=== PATIENT | female | born 1970 | race Caucasian/White ===

== ENCOUNTER 2020-06-02 08:02 | Outpatient (CLI) | payer MEDICARE, MEDICAID ==
[~2020-06-02 08:02] MED LIST: ACETAMINOPHEN 325 MG TABLET PO PRN; DIPHENHYDRAMINE HCL 25 MG in NORMAL SALINE 50 ML IV PRN; IRON DEXTRAN COMPLEX 25 MG in SYRINGE, DISPOSABLE, 1 EACH IV PRN; IRON DEXTRAN COMPLEX 775 MG in NORMAL SALINE 500 ML IV PRN; NORMAL SALINE 250 ML IV PRN
[2020-06-02 08:35] VITALS: BP 112/51
== END 2020-06-02 14:10 | disposition home or self-care (01) ==
LOC: II 08:02 → 5TH 08:06 → II 14:10
PROVIDERS: ATTEND Internal Medicine Hematology & Oncology
DX: D50.9 Iron deficiency anemia, unspecified (principal); K90.9 Intestinal malabsorption, unspecified
CPT/HCPCS: 96365; 96367; 96375; A9270; J1200; J1750; J7040; J3490; J1642; 96366

== ENCOUNTER 2020-06-09 09:00 | Outpatient (CLI) | payer MEDICARE, MEDICAID ==
[~2020-06-09 09:00] MED LIST changes: -DIPHENHYDRAMINE HCL 25 MG in NORMAL SALINE 50 ML IV PRN; +DIPHENHYDRAMINE HCL 50 MG/ML VIAL IV PRN; -IRON DEXTRAN COMPLEX 25 MG in SYRINGE, DISPOSABLE, 1 EACH IV PRN; -IRON DEXTRAN COMPLEX 775 MG in NORMAL SALINE 500 ML IV PRN; +IRON DEXTRAN COMPLEX 800 MG in NORMAL SALINE 500 ML IV PRN
[2020-06-09 09:50] VITALS: BP 117/73
== END 2020-06-09 14:00 | disposition home or self-care (01) ==
LOC: II 09:00 → 5TH 09:02 → II 14:00
PROVIDERS: ATTEND Internal Medicine Hematology & Oncology
DX: D50.9 Iron deficiency anemia, unspecified (principal); K90.9 Intestinal malabsorption, unspecified
CPT/HCPCS: 96365; 96366; 96375; A9270; J1200; J1750; J7040; J1642; 96367; 96374